=== PATIENT | female | born 1965 | race Caucasian/White ===

== ENCOUNTER 2017-10-14 10:59 | Emergency (ER) | payer MEDICAID, OTHER ==
[~2017-10-14] VITALS: Ht 170.2 cm; Wt 63.6 kg
[2017-10-14 11:01] VITALS: BP 162/80; PULSE 76; RESP 12; TEMP 99; O2SAT 98
[2017-10-14 11:53] LABS: BASOPHIL % 0.7 % (0.0-2.0); EOSINOPHIL % 0.2 % (0.0-4.0); HEMATOCRIT 44.1 % (35.0-46.0); HEMOGLOBIN 15.2 GM/DL (11.6-15.3); LYMPH % 23.1 % (9.0-44.0); LYMPHOCYTE # 1.3 TH/MM3 (1.0-4.8); MEAN CELL VOLUME 95.1 FL (80.0-100.0); MEAN CORPUSCULAR HEMOGLOBIN 32.7 PG (27.0-34.0); MEAN CORPUSCULAR HGB CONC 34.4 % (32.0-36.0); MEAN PLATELET VOLUME 8.1 FL (7.0-11.0); MONO % 5.2 % (0.0-8.0); MONOCYTE # 0.3 TH/MM3 (0-0.9); NEUT % 70.8 % (16.0-70.0); PLATELET COUNT 256 TH/MM3 (150-450); RED BLOOD COUNT 4.64 MIL/MM3 (4.00-5.30); RED CELL DISTRIBUTION WIDTH 12.7 % (11.6-17.2); WHITE BLOOD COUNT 5.6 TH/MM3 (4.0-11.0)
[2017-10-14] MEDS ORDERED: ONDANSETRON HCL 4 MG/2 ML VIAL IV PUSH ONE ×2 (12:00→12:30)
[2017-10-14] MEDS ORDERED: SODIUM CHLOR 0.9% 1000 ML INJ 1,000 ML IV SCH (12:00)
[2017-10-14] MEDS ORDERED: MORPHINE SULFATE 2 MG/ML INJ IV PUSH ONE (12:00)
[2017-10-14 12:02] LABS: INTERNATIONAL NORMALIZED RATIO 1.1 RATIO; PROTHROMBIN TIME - PATIENT 11.4 SEC (9.8-11.6)
[2017-10-14 12:05] LABS: BILIRUBIN, URINE NEG (NEG); BLOOD, URINE NEG (NEG); GLUCOSE,URINE NEG (NEG); KETONE, URINE NEG (NEG); NITRITE,URINE NEG (NEG); URINE LEUKOCYTE ESTERASE NEG (NEG)
--- NOTE | 2017-10-14 12:06 | PD ---
HPI Chief Complaint: Abdominal Pain Time Seen by Provider: 11:50 Travel History International Travel<30 days: No Contact w/Intl Traveler<30days: No Traveled to known affect area: No History of Present Illness HPI The patient is a 52-year-old female who presents to the emergency department for epigastric abdominal pain with nausea. The patient notes a 1-2 month history of bilateral back pain which she describes as "kidney pain" that is nonradiating. The patient has been trying [id number] herbal supplements and vinegar for her possible UTIs. However, the patient developed epigastric abdominal pain on Tuesday. She had outpatient blood work which revealed a bilirubin of 2.9, LFTs are normal. The pain is located in epigastrium, radiates to the right upper quadrant and into the back. She days complain of nausea but denies any postprandial symptoms. She denies any fever, chills, or sweats. She does have a history of previous section and tubal ligation, denies any known history pancreatitis, gallstones, or kidney stones. The patient only drinks one to 2 glasses of wine per month. Symptoms are moderate, there are no alleviating or exacerbating factors. PFSH Past Medical History Narrative Medical Hypertension Cerebrovascular Accident: Yes (HTN) Past Surgical History Narrative Surgical section, tubal ligation Social History Tobacco Use: No Allergies-Medications (Allergen,Severity, Reaction): Coded Allergies: No Known Allergies (Unverified , 10/14/17) Reported Meds & Prescriptions Reported Meds & Active Scripts Active Reported Lisinopril 5 Mg Tab 5 Mg PO DAILY Review of Systems Except as stated in HPI: all other systems reviewed are Neg General / Constitutional: No: Fever Cardiovascular: No: Chest Pain or Discomfort Respiratory: No: Shortness of Breath Gastrointestinal: Positive: Nausea, Abdominal Pain, No: Vomiting, Diarrhea Genitourinary: No: Dysuria Musculoskeletal: Positive: Pain (back pain) Neurologic: No: Dizziness Physical Exam Narrative GENERAL: Awake, alert, pleasant 52-year-old female who appears her stated age and is in no acute respiratory distress. SKIN: Focused skin assessment warm/dry. HEAD: Atraumatic. Normocephalic. EYES: Pupils equal and round. Minimal scleral icterus bilaterally. ENT: No nasal bleeding or discharge. Mucous membranes pink and moist. NECK: Trachea midline. No JVD. CARDIOVASCULAR: Regular rate and rhythm. No murmur appreciated. RESPIRATORY: No accessory muscle use. Clear to auscultation. Breath sounds equal bilaterally. GASTROINTESTINAL: Abdomen soft, tender palpation epigastrium and right upper quadrant. I am able to palpate the patient's aorta which is bounding, but no large palpable mass. Back: Mild tenderness of the CVA bilaterally. MUSCULOSKELETAL: No obvious deformities. No clubbing. No cyanosis. No edema. NEUROLOGICAL: Awake and alert. No obvious cranial nerve deficits. Motor grossly within normal limits. Normal speech. PSYCHIATRIC: Appropriate mood and affect; insight and judgment normal. Data Data Last Documented VS Vital Signs Date Time Temp Pulse Resp B/P (MAP) Pulse Ox O2 Delivery O2 Flow Rate FiO2 10/14/17 11:01 99.0 76 12 162/80 (107) 98 Orders Orders Complete Blood Count With Diff (10/14/17 11:22) Comprehensive Metabolic Panel (10/14/17 11:22) Lipase (10/14/17 11:22) Prothrombin Time / Inr (Pt) (10/14/17 11:22) Act Partial Throm Time (Ptt) (10/14/17 11:22) Urinalysis - C+S If Indicated (10/14/17 11:22) Us Abdomen Gallbladder (10/14/17 ) Morphine Inj (Morphine Inj) (10/14/17 12:00) Ondansetron Inj (Zofran Inj) (10/14/17 12:00) Sodium Chlor 0.9% 1000 Ml Inj (Ns 1000 M (10/14/17 12:00) Ondansetron Inj (Zofran Inj) (10/14/17 12:30) Ct Abd/Pel W Iv Contrast(Rout) (10/14/17 ) Iohexol 350 Inj (Omnipaque 350 Inj) (10/14/17 13:31) Labs Laboratory Tests Test 10/14/17 11:40 White Blood Count 5.6 TH/MM3 Red Blood Count 4.64 MIL/MM3 Hemoglobin 15.2 GM/DL Hematocrit 44.1 % Mean Corpuscular Volume 95.1 FL Mean Corpuscular Hemoglobin 32.7 PG Mean Corpuscular Hemoglobin Concent 34.4 % Red Cell Distribution Width 12.7 % Platelet Count 256 TH/MM3 Mean Platelet Volume 8.1 FL Neutrophils (%) (Auto) 70.8 % Lymphocytes (%) (Auto) 23.1 % Monocytes (%) (Auto) 5.2 % Eosinophils (%) (Auto) 0.2 % Basophils (%) (Auto) 0.7 % Neutrophils # (Auto) 4.0 TH/MM3 Lymphocytes # (Auto) 1.3 TH/MM3 Monocytes # (Auto) 0.3 TH/MM3 Eosinophils # (Auto) 0.0 TH/MM3 Basophils # (Auto) 0.0 TH/MM3 CBC Comment DIFF FINAL Differential Comment Prothrombin Time 11.4 SEC Prothromb Time International Ratio 1.1 RATIO Activated Partial Thromboplast Time 24.5 SEC Urine Color STRAW Urine Turbidity CLEAR Urine pH 7.0 Urine Specific [place] 1.000 Urine Protein NEG mg/dL Urine Glucose (UA) NEG mg/dL Urine Ketones NEG mg/dL Urine Occult Blood NEG Urine Nitrite NEG Urine Bilirubin NEG Urine Urobilinogen LESS THAN 2.0 MG/DL Urine Leukocyte Esterase NEG Microscopic Urinalysis Comment CULT NOT INDICATED Blood Urea Nitrogen 6 MG/DL Creatinine 0.65 MG/DL Random Glucose 111 MG/DL Total Protein 7.9 GM/DL Albumin 4.3 GM/DL Calcium Level 9.1 MG/DL Alkaline Phosphatase 79 U/L Aspartate Amino Transf (AST/SGOT) 15 U/L Alanine Aminotransferase (ALT/SGPT) 25 U/L Total Bilirubin 2.8 MG/DL Sodium Level 138 MEQ/L Potassium Level 4.3 MEQ/L Chloride Level 104 MEQ/L Carbon Dioxide Level 29.7 MEQ/L Anion Gap 4 MEQ/L Estimat Glomerular Filtration Rate 95 ML/MIN Lipase 72 U/L [facility] Medical Decision Making Medical Screen Exam Complete: Yes Emergency Medical Condition: Yes Medical Record Reviewed: Yes Interpretation(s) Laboratory Tests Test 10/14/17 11:40 White Blood Count 5.6 TH/MM3 Red Blood Count 4.64 MIL/MM3 Hemoglobin 15.2 GM/DL Hematocrit 44.1 % Mean Corpuscular Volume 95.1 FL Mean Corpuscular Hemoglobin 32.7 PG Mean Corpuscular Hemoglobin Concent 34.4 % Red Cell Distribution Width 12.7 % Platelet Count 256 TH/MM3 Mean Platelet Volume 8.1 FL Neutrophils (%) (Auto) 70.8 % Lymphocytes (%) (Auto) 23.1 % Monocytes (%) (Auto) 5.2 % Eosinophils (%) (Auto) 0.2 % Basophils (%) (Auto) 0.7 % Neutrophils # (Auto) 4.0 TH/MM3 Lymphocytes # (Auto) 1.3 TH/MM3 Monocytes # (Auto) 0.3 TH/MM3 Eosinophils # (Auto) 0.0 TH/MM3 Basophils # (Auto) 0.0 TH/MM3 CBC Comment DIFF FINAL Differential Comment Prothrombin Time 11.4 SEC Prothromb Time International Ratio 1.1 RATIO Activated Partial Thromboplast Time 24.5 SEC Urine Color STRAW Urine Turbidity CLEAR Urine pH 7.0 Urine Specific [place] 1.000 Urine Protein NEG mg/dL Urine Glucose (UA) NEG mg/dL Urine Ketones NEG mg/dL Urine Occult Blood NEG Urine Nitrite NEG Urine Bilirubin NEG Urine Urobilinogen LESS THAN 2.0 MG/DL Urine Leukocyte Esterase NEG Microscopic Urinalysis Comment CULT NOT INDICATED Blood Urea Nitrogen 6 MG/DL Creatinine 0.65 MG/DL Random Glucose 111 MG/DL Total Protein 7.9 GM/DL Albumin 4.3 GM/DL Calcium Level 9.1 MG/DL Alkaline Phosphatase 79 U/L Aspartate Amino Transf (AST/SGOT) 15 U/L Alanine Aminotransferase (ALT/SGPT) 25 U/L Total Bilirubin 2.8 MG/DL Sodium Level 138 MEQ/L Potassium Level 4.3 MEQ/L Chloride Level 104 MEQ/L Carbon Dioxide Level 29.7 MEQ/L Anion Gap 4 MEQ/L Estimat Glomerular Filtration Rate 95 ML/MIN Lipase 72 U/L Last Impressions Gall Bladder Ultrasound 10/14/17 0000 Signed Impressions: Service Date/Time: Saturday, October 14, 2017 12:05 - CONCLUSION: Focally unremarkable sonographic appearance of the right upper quadrant Kevin Valerio MD Abdomen/Pelvis CT 10/14/17 0000 Signed Impressions: Service Date/Time: Saturday, October 14, 2017 13:25 - CONCLUSION: Incompletely seen right lung base nodule. Correlate with CT chest if indicated. Tiny liver cyst. No acute findings in the abdomen or pelvis and no specific explanation for right upper quadrant pain. Kevin Valerio MD Differential Diagnosis Differential diagnosis includes pancreatitis, peptic ulcer disease, gastritis, choledocholithiasis, cholecystitis, AAA, pyelonephritis, hydronephrosis. Narrative Course IV was established, labs are drawn and sent, and the patient was placed on cardiac telemetry monitoring and continuous pulse oximetry monitoring. The patient was glaciologist morphine, Zofran, and IV fluids. Ultrasound of the gallbladder was ordered. The patient's bilirubin was elevated at 2.8, however, the patient's AST, ALT, lipase are unremarkable. White count is normal. Hemoglobin is normal, unsure why bilirubin is elevated unsure if this is conjugated versus unconjugated. Ultrasound of the abdomen reveals no significant abnormalities of the liver or gallbladder. Therefore, CT of the abdomen and pelvis was performed, there are no sick abnormalities, possible small lung nodule noted. The patient has epigastric abdominal pain and may benefit from outpatient follow-up with gastroenterology if symptoms persist for outpatient endoscopy. I will place the patient on Protonix. Diagnosis Primary Impression: Epigastric abdominal pain Patient Instructions: General Instructions Additional Instructions: Medications as directed. Follow-up with gastroenterology if symptoms persist, he may benefit from outpatient endoscopy. Please provide the patient a copy of her lab results and CT results at discharge. Med/Other Pt SpecificInfo: Prescription(s) given Scripts Pantoprazole (Protonix) 40 Mg Tab 40 MG PO DAILY for Ulcer Prevention, #30 TAB 0 Refills Prov: Jose Daniel Bryant MD 10/14/17 Disposition: DISCHARGE HOME Condition: Stable Jose Daniel Bryant MD Oct 14, 2017 12:06
[2017-10-14 12:09] LABS: URINE COLOR STRAW (YELLW/STRAW)
[2017-10-14 12:10] LABS: ALBUMIN 4.3 GM/DL (3.4-5.0); ALT (GPT) 25 U/L (10-53); AST (GOT) 15 U/L (15-37); BICARBONATE 29.7 MEQ/L (21.0-32.0); BLOOD UREA NITROGEN 6 MG/DL (7-18); CALCIUM 9.1 MG/DL (8.5-10.1); CHLORIDE 104 MEQ/L (98-107); CREATININE 0.65 MG/DL (0.50-1.00); GLOMERULAR FILTRATION RATE 95 ML/MIN (>89); GLUCOSE,RANDOM 111 MG/DL (74-106); LIPASE 72 U/L (73-393); SODIUM (NA) 138 MEQ/L (136-145)
[2017-10-14 12:12] LABS: ALKALINE PHOSPHATASE 79 U/L (45-117); TOTAL BILIRUBIN ADULT 2.8 MG/DL (0.2-1.0); TOTAL PROTEIN 7.9 GM/DL (6.4-8.2)
[2017-10-14] MEDS ORDERED: LISI-519 PO (12:27)
--- NOTE | 2017-10-14 12:56 | RADRPT ---
EXAM DATE/TIME: 10/14/2017 12:05 [facility] COMPARISON: No previous studies available for comparison. INDICATIONS : Right upper quadrant pain. MEDICAL HISTORY : Hypertension. SURGICAL HISTORY : None. ENCOUNTER: Initial ACUITY: 3 days PAIN SCORE: 2/10 LOCATION: Right upper quadrant MEASUREMENTS: LIVER: 17.3 cm length COMMON DUCT: 4 mm RIGHT KIDNEY: 12.9 x 4.4 x 5.5 cm FINDINGS: LIVER: Normal echotexture without focal lesion or ductal dilatation. COMMON DUCT: No intraluminal mass or stone visualized. GALLBLADDER: Contains no stones, demonstrates no wall thickening or pericholecystic fluid. PANCREAS: The visualized portions are within normal limits. RIGHT KIDNEY: No evidence of hydronephrosis, stone, or mass. CONCLUSION: Focally unremarkable sonographic appearance of the right upper quadrant Kevin Valerio MD on October 14, 2017 at 12:50 Board Certified Radiologist. This report was verified electronically.
[2017-10-14] MEDS ORDERED: IOHEXOL 350 MG/ML 10 ML VIAL (for RAD DIAG) IVCONTRAST ONE (13:31)
--- NOTE | 2017-10-14 13:43 | RADRPT ---
EXAM DATE/TIME: 10/14/2017 13:25 [facility] COMPARISON: No previous studies available for comparison. INDICATIONS : Right upper quadrant pain. IV CONTRAST: 90 cc Omnipaque 350 (iohexol) IV ORAL CONTRAST: No oral contrast ingested. RADIATION DOSE: 5.65 CTDIvol (mGy) MEDICAL HISTORY : Cerebrovascular disease. Hypertension. SURGICAL HISTORY : Tubal ligation. ENCOUNTER: Initial ACUITY: 3 days PAIN SCALE: 5/10 LOCATION: Right upper quadrant TECHNIQUE: Volumetric scanning of the abdomen and pelvis was performed. Using automated exposure control and ad justment of the mA and/or kV according to patient size, radiation dose was kept as low as reasonably achievable to obtain optimal diagnostic quality images. DICOM format image data is available electro nically for review and comparison. FINDINGS: LOWER LUNGS: There is an incompletely seen at least 15 mm nodule in the central right lung base. LIVER: Tiny right lobe low density is probably a cyst. No evidence of biliary ductal dilatation. Gallbladder is unremarkable for CT appearance. SPLEEN: Normal size without lesion. PANCREAS: Within normal limits. KIDNEYS: Normal in size and shape. There is no mass, stone or hydronephrosis. ADRENAL GLANDS: Within normal limits. VASCULAR: There is no aortic aneurysm. BOWEL/MESENTERY: The stomach, small bowel, and colon demonstrate no acute abnormality. There is no free intraperitone al air or fluid. ABDOMINAL WALL: Within normal limits. RETROPERITONEUM: There is no lymphadenopathy. BLADDER: No wall thickening or mass. REPRODUCTIVE: Within normal limits. INGUINAL: There is no lymphadenopathy or hernia. MUSCULOSKELETAL: Within normal limits for patient age. CONCLUSION: Incompletely seen right lung base nodule. Correlate with CT chest if indicated. Tiny liver cyst. No acute findings in the abdomen or pelvis and no specific explanation for right upper quadrant pain. Kevin Valerio MD on October 14, 2017 at 13:37 Board Certified Radiologist. This report was verified electronically.
[2017-10-14] MEDS ORDERED: PROT40TA PO (14:04)
== END 2017-10-14 14:55 | disposition home or self-care (01) ==
LOC: NEPE 10:59
DX: R10.13 Epigastric pain (principal); R11.0 Nausea; I10 Essential (primary) hypertension
CPT/HCPCS: 74177; 76705; 80053; 81001; 83690; 85025; 85610; 85730; 96361; 96374; 96375; 99285; J2270; J2405; J7030; Q9967